=== PATIENT | female | born 1990 | race Caucasian/White ===

== ENCOUNTER 2018-05-14 20:46 | Emergency (ER) | payer MEDICARE ==
[~2018-05-14] VITALS: Ht 152.4 cm; Wt 96.4 kg
[~2018-05-14 20:46] MED LIST: /OMEP10CA; ALBU17IN INH; ALBU17IN2; BENA25CA2 PO; CARA1TAB6 PO; CELE10TA; CELE20TA; CLEO1GEL TOP; DEPA500T2 OR; ENAL10TA2 OR; LITH1TAB PO; LITH600C PO; No Historical Meds; PAXI30TA OR; PROT1TAB2; PROZ10CA7 PO; PROZ20CA11 PO; TRAZ-160 PO; TRAZ50TA; TRAZ50TA2 PO; TRIL600T; [UNRECOGNIZED DRUG - CODE] PO; no home meds
[2018-05-14] MEDS ORDERED: VITA1CAP25 (21:04)
[2018-05-14] MEDS ORDERED: LISI-672 PO (21:04)
[2018-05-14] MEDS ORDERED: MOTR200T44 PO (21:04)
[2018-05-14] MEDS ORDERED: OMEP-218 PO (21:04)
--- NOTE | 2018-05-14 22:09 | REP ---
Clinical: Cough and shortness of breath . Comparison: 01/09/2012 . Technique: PA and lateral. Findings: The mediastinum and cardiac silhouette are normal. The lung rodriguez are clear and without acute consolidation, effusion, or pneumothorax. The skeletal structures are intact and normal. Impression: 1. No acute cardiopulmonary process. Electronically Signed by Tristen Flores MD 05/14/2018 10:00 P
[2018-05-14] MEDS ORDERED: MUCI600T37 PO (22:26)
[2018-05-14] MEDS ORDERED: TESS100C PO (22:26)
[2018-05-14] MEDS ORDERED: BENZONATATE 100 MG CAP PO ONE (22:30)
[2018-05-14 22:32] VITALS: BP 116/57
== END 2018-05-14 22:33 | disposition home or self-care (01) ==
LOC: M ED 20:46
DX: J45.901 Unspecified asthma with (acute) exacerbation (principal); R51 Headache; Z88.0 Allergy status to penicillin; Z88.2 Allergy status to sulfonamides; Z88.8 Allergy status to other drugs, medicaments and biological substances; Z88.5 Allergy status to narcotic agent; Z79.899 Other long term (current) drug therapy

== ENCOUNTER → 2018-05-23 | Outpatient (CLI) | payer MEDICARE ==
[~2018-05-23] MED LIST changes: +GASTROGRAFIN SOLUTION 30ML (Q9963) As Ordered ONE; +ISOVUE-370 76% 100ML VIAL (Q9967) As Ordered ONE; +LISI-672 PO; +MOTR200T44 PO; +MUCI600T37 PO; +OMEP-218 PO; +TESS100C PO; +VITA1CAP25
--- NOTE | 2018-05-23 17:18 | REP ---
CT abdomen pelvis with IV and oral contrast: History: Abdomen pain and mass. CT contrast dose: 100 ml of intravenous Isovue [address] study is from August 29, 2008. CT findings: Preliminary digital card cleaner radiograph is unremarkable. A normal bowel gas pattern is seen. Lung bases are clear on axial CT images. The liver as normal in size homogeneous in texture. No focal hepatic lesion is seen. No adrenal lesion is observed. The spleen is normal and homogeneous. There is a small accessory splenule. No pancreatic abnormalities observed. No abnormalities noted in the gallbladder. The kidneys enhance symmetrically and are morphologically intact. Small and large bowel loops are normal in the abdomen and pelvis. A normal appendix is seen in the right lower abdomen. No uterine or ovarian abnormality is observed. No abdominal wall defect is seen. No mass lesion is observed. Bone window settings show no bony destructive lesion. Impression: Negative CT study of the abdomen and pelvis with IV and oral contrast. No mass lesion is seen. No evidence of abdominal wall defect. Normal appendix. Electronically Signed by Jared Arzate MD 05/24/2018 07:51 A
== END ==
LOC: M RAD 13:46
PROVIDERS: ATTEND Family Medicine
DX: R19.00 Intra-abdominal and pelvic swelling, mass and lump, unspecified site (principal)
CPT/HCPCS: 74177; Q9963; Q9967

== ENCOUNTER 2018-08-13 20:26 | Emergency (ER) | payer MEDICARE, MEDICAID ==
[~2018-08-13] VITALS: Ht 152.4 cm; Wt 95.5 kg
[~2018-08-13 20:26] MED LIST changes: -GASTROGRAFIN SOLUTION 30ML (Q9963) As Ordered ONE; -ISOVUE-370 76% 100ML VIAL (Q9967) As Ordered ONE; -TRAZ-160 PO; +TRAZ-252 PO
[2018-08-13] MEDS ORDERED: GI COCKTAIL 50ML BTL(HYOSCYAMINE/MAALOX/LIDOCAINE VISCOUS)(1:3:1) PO ONE (20:45)
[2018-08-13] MEDS ORDERED: ASPIRIN 81 MG CHEW TABLET PO ONE (20:45)
[2018-08-13 20:52] LABS: HEMATOCRIT 48.4 % (36.0-47.0); HEMOGLOBIN 16.4 g/dl (12.0-15.5); MEAN CORPUSCULAR HEMOGLOBIN 32.5 pg (27.0-33.0); MEAN CORPUSCULAR HGB CONC 33.9 g/dl (32.0-36.5); MEAN CORPUSCULAR VOLUME 95.8 fl (80.0-96.0); PLATELET COUNT, AUTOMATED 294 10^3/uL (150-450); RED BLOOD COUNT 5.05 10^6/uL (4.00-5.40); WHITE BLOOD COUNT 19.3 10^3/uL (4.0-10.0)
[2018-08-13 21:02] LABS: PROTHROMBIN TIME 12.9 SECONDS (11.8-14.0)
[2018-08-13 21:10] LABS: HCG, SERUM QUALITATIVE NEGATIVE (NEGATIVE)
[2018-08-13 21:20] LABS: ALBUMIN 3.8 GM/DL (3.2-5.2); ALT/SGPT 24 U/L (12-78); BILIRUBIN,DIRECT 0.2 MG/DL (0.0-0.2); BILIRUBIN,TOTAL 0.4 MG/DL (0.2-1.0); BLOOD UREA NITROGEN 13 MG/DL (7-18); CALCIUM LEVEL 10.1 MG/DL (8.5-10.1); CARBON DIOXIDE LEVEL 26 MEQ/L (21-32); CHLORIDE LEVEL 105 MEQ/L (98-107); CK-MB VALUE MASS < 1.0 NG/ML (<3.6); CPK CREATINE PHOSPHOKINASE 86 U/L (26-192); CREATININE FOR GFR 1.04 MG/DL (0.55-1.30); GLOMERULAR FILTRATION RATE > 60.0 (>60); GLUCOSE, FASTING 101 MG/DL (70-100); MB/CK RELATIVE INDEX 1.16 (< OR =4); POTASSIUM SERUM 3.9 MEQ/L (3.5-5.1); SODIUM LEVEL 139 MEQ/L (136-145); TOTAL PROTEIN 8.1 GM/DL (6.4-8.2); TROPONIN I < 0.02 NG/ML (< 0.10)
[2018-08-13 21:21] LABS: BASOPHILS 2 % (0-4); EOSINOPHILS 1 % (0-5); LYMPHOCYTES 28 % (16-52); MONOCYTES 2 % (0-8); NEUTROPHILS 67 % (35-75)
[2018-08-13 21:22] LABS: PLATELET ESTIMATE NORMAL (NORMAL)
[2018-08-13 21:52] LABS: LIPASE 126 U/L (73-393)
[2018-08-13] MEDS ORDERED: CIPR-249 PO (22:49)
[2018-08-13 23:00] VITALS: BP 151/75
[2018-08-13] MEDS ORDERED: CIPROFLOXACIN 500 MG TAB PO ONE (23:00)
--- NOTE | 2018-08-14 14:03 | REP ---
Clinical: Acute chest pain . Comparison: 05/14/2018 . Technique: PA and lateral. Findings: The mediastinum and cardiac silhouette are normal. The lung rodriguez are clear and without acute consolidation, effusion, or pneumothorax. The skeletal structures are intact and normal. Impression: 1. No acute cardiopulmonary process. Electronically Signed by Tristen Flores MD 08/14/2018 07:45 A
--- NOTE | 2018-08-14 15:36 | ECGEPIP ---
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
== END 2018-08-13 23:08 | disposition home or self-care (01) ==
LOC: M ED 20:26
DX: K29.70 Gastritis, unspecified, without bleeding (principal); N39.0 Urinary tract infection, site not specified; I10 Essential (primary) hypertension; J45.909 Unspecified asthma, uncomplicated; G43.909 Migraine, unspecified, not intractable, without status migrainosus; Z79.899 Other long term (current) drug therapy

== ENCOUNTER 2018-08-15 21:10 | Emergency (ER) | payer MEDICARE, MEDICAID ==
[~2018-08-15] VITALS: Ht 152.4 cm; Wt 95.5 kg
[2018-08-15 21:10] VITALS: BP 136/83
[~2018-08-15 21:10] MED LIST changes: +CIPR-249 PO
== END 2018-08-15 22:52 | disposition left against medical advice (07) ==
LOC: M ED 21:10
DX: R11.2 Nausea with vomiting, unspecified (principal); R19.7 Diarrhea, unspecified; Z53.21 Procedure and treatment not carried out due to patient leaving prior to being seen by health care provider

== ENCOUNTER → 2018-09-06 | Outpatient (CLI) | payer MEDICARE, MEDICAID ==
--- NOTE | 2018-09-06 13:27 | REP ---
Clinical: Dorsalgia. Thoracic pain. Technique: AP, lateral. Findings: Alignment and kyphosis is maintained. Vertebral bodies intact. No acute fracture / compression injury or subluxation. No degenerative changes. Paravertebral soft tissues are normal. Impression: Normal thoracic spine series. Electronically Signed by Tristen Flores MD 09/06/2018 01:19 P
--- NOTE | 2018-09-06 13:28 | REP ---
Clinical: Dorsalgia . Technique: AP, lateral, bilateral oblique, and coned-down views. Findings: Alignment and lordosis is maintained. The vertebral bodies including transverse process and spinous processes are intact and normal. There is no evidence for acute fracture / compression injury or subluxation. No evidence for spondylolysis or spondylolisthesis. No significant degenerative change is noted. Impression: Normal lumbosacral spine radiograph series. Electronically Signed by Tristen Flores MD 09/06/2018 01:19 P
--- NOTE | 2018-09-06 13:29 | REP ---
Clinical: Dorsalgia . Technique: AP, lateral, flexion/extension, bilateral oblique, swimmer's, and open-mouth views. Findings: Alignment and lordosis is maintained. There is no evidence for acute fracture / compression injury or subluxation. No significant degenerative changes are appreciated. Oblique views demonstrate patent neural foramen. Open mouth view demonstrates normal C1-C2 articulation and odontoid process. Impression: Normal cervical spine series. Electronically Signed by Tristen Flores MD 09/06/2018 01:20 P
== END ==
LOC: M RAD 12:45
PROVIDERS: ATTEND Family Medicine
DX: M54.9 Dorsalgia, unspecified (principal)

== ENCOUNTER → 2018-10-04 | Outpatient (CLI) | payer MEDICARE, MEDICAID ==
[~2018-10-04] MED LIST changes: +AZIT-12; +AZIT-12 PO; +CVS2500C PO; +CYAN100050 PO; +CYCL5TAB PO; +DEPA250T32 PO; +EXCETAB33 PO; +FLUO20CA19 PO; +HYDR50TA70 PO; +IBUP1TAB7 PO; +KETO10TAB PO; +MM S100C PO; +NYST1POW9 TOP; +VENTAER INH; +VITA1CAP25 PO; +VITACHTA PO
--- NOTE | 2018-10-05 13:56 | REP ---
CT CHEST WITHOUT CONTRAST: HISTORY: Abnormal weight loss. Comparison chest CT study is from February 13, 2013. CT FINDINGS: Preliminary digital front desk admin radiograph is unremarkable. The lung rodriguez are clear. No evidence of infiltrate, mass, or significant pulmonary nodule. No pleural or pericardial effusion is seen. There is no evidence of hilar or mediastinal mass or adenopathy. Thyroid lobes are normal and symmetric although incompletely included in the imaging field of view. No adrenal lesion is seen. The visualized upper abdominal structures are unremarkable. No bony destructive lesion is seen. IMPRESSION: No acute cardiopulmonary disease. Electronically Signed by Jared Arzate MD 10/05/2018 04:41 P
--- NOTE | 2018-10-05 13:58 | REP ---
CT ABDOMEN AND PELVIS WITHOUT IV OR ORAL CONTRAST: HISTORY: Abnormal weight loss. Comparison CT study is from May 23, 2018. CT FINDINGS: Liver and spleen are normal in size homogeneous in texture. The gallbladder and the pancreas are unremarkable. No adrenal lesion is seen. The kidneys remain morphologically intact. No retroperitoneal mass seen. No mesenteric mass or adenopathy is seen. Small and large bowel loops are normal in caliber. No urinary bladder abnormality is seen. Uterus and ovarian soft tissues are unremarkable. No bony destructive lesion is seen. IMPRESSION: Unremarkable CT study abdomen and pelvis without contrast. Electronically Signed by Jared Arzate MD 10/05/2018 04:42 P
== END ==
LOC: M RAD 14:00
PROVIDERS: ATTEND Family Medicine
DX: R63.4 Abnormal weight loss (principal)

== ENCOUNTER → 2018-10-21 | Outpatient (CLI) | payer MEDICARE, MEDICAID ==
[~2018-10-21] MED LIST changes: -AZIT-12; -AZIT-12 PO; -CVS2500C PO; -CYAN100050 PO; -CYCL5TAB PO; -DEPA250T32 PO; -EXCETAB33 PO; -FLUO20CA19 PO; -HYDR50TA70 PO; -IBUP1TAB7 PO; -KETO10TAB PO; -MM S100C PO; -NYST1POW9 TOP; -VENTAER INH; -VITA1CAP25 PO; -VITACHTA PO
[2018-10-21 12:32] LABS: APPEARANCE, URINE CLEAR (CLEAR); BACTERIA, URINE AUTO NEGATIVE (NEGATIVE); BILIRUBIN, URINE AUTO NEGATIVE (NEGATIVE); BLOOD, URINE BLOOD NEGATIVE (NEGATIVE); COLOR, URINE YELLOW (YELLOW); GLUCOSE, URINE (UA) AUTO NEGATIVE (NEGATIVE); KETONE, URINE AUTO NEGATIVE (NEGATIVE); LEUKOCYTE ESTERASE, URINE AUTO NEGATIVE (NEGATIVE); MUCUS, URINE SMALL (NEGATIVE); NITRITE, URINE AUTO NEGATIVE (NEGATIVE); PROTEIN, URINE AUTO NEGATIVE (NEGATIVE); RBC, URINE AUTO 1 /HPF (0-3); SPECIFIC GRAVITY URINE AUTO 1.014 (1.002-1.035); SQUAMOUS EPITHELIAL CELL UR AU 4 /HPF (0-6); UROBILINOGEN, URINE AUTO 0.2 mg/dL (0.0-2.0); WBC, URINE AUTO 1 /HPF (0-3)
[2018-10-21 12:38] LABS: BASO # 0.1 10^3/uL (0.0-0.2); BASO % 0.6 % (0.0-1.0); EOS # 0.4 10^3/uL (0.0-0.5); EOS % 4.9 % (0.0-3.0); HEMATOCRIT 43.7 % (36.0-47.0); HEMOGLOBIN 14.2 g/dl (12.0-15.5); LYMPH # 2.5 10^3/uL (1.5-5.0); LYMPH % 31.5 % (24.0-44.0); MEAN CORPUSCULAR HEMOGLOBIN 31.3 pg (27.0-33.0); MEAN CORPUSCULAR HGB CONC 32.5 g/dl (32.0-36.5); MEAN CORPUSCULAR VOLUME 96.3 fl (80.0-96.0); MONO # 0.6 10^3/uL (0.0-0.8); MONO % 7.2 % (0.0-5.0); NEUTROPHILS # 4.3 10^3/uL (1.5-8.5); NEUTROPHILS % 55.7 % (36.0-66.0); PLATELET COUNT, AUTOMATED 271 10^3/uL (150-450); RED BLOOD COUNT 4.54 10^6/uL (4.00-5.40); WHITE BLOOD COUNT 7.8 10^3/uL (4.0-10.0)
[2018-10-21 13:13] LABS: HEMOGLOBIN A1c 5.3 %
[2018-10-21 13:24] LABS: ALBUMIN 3.6 GM/DL (3.2-5.2); ALT/SGPT 38 U/L (12-78); BILIRUBIN,TOTAL 0.5 MG/DL (0.2-1.0); BLOOD UREA NITROGEN 14 MG/DL (7-18); CALCIUM LEVEL 10.3 MG/DL (8.5-10.1); CARBON DIOXIDE LEVEL 31 MEQ/L (21-32); CHLORIDE LEVEL 104 MEQ/L (98-107); CHOLESTEROL LEVEL 214 MG/DL (<200); CHOLESTEROL RISK RATIO 5.095 (<5); CREATININE FOR GFR 0.68 MG/DL (0.55-1.30); FREE T4 0.89 NG/DL (0.76-1.46); GLOMERULAR FILTRATION RATE > 60.0 (>60); GLUCOSE, FASTING 95 MG/DL (70-100); HDL CHOLESTEROL 42 MG/DL (>40); LDL CHOLESTEROL 144 MG/DL (<100); NON-HDL-C 172 MG/DL; POTASSIUM SERUM 4.6 MEQ/L (3.5-5.1); SODIUM LEVEL 140 MEQ/L (136-145); THYROID STIMULATING HORMONE 0.933 uIU/ML (0.358-3.740); TOTAL 25(OH) VITAMIN D 44.4 NG/ML (30.0-100.0); TRIGLYCERIDES LEVEL 140 MG/DL (<150); VITAMIN B12 LEVEL 193 PG/ML (247-911)
[2018-10-22 14:25] LABS: ANTINUCLEAR ANTIBODIES DIRECT Negative (Negative)
== END ==
LOC: M WUC 10:03
PROVIDERS: ATTEND Family Medicine
DX: F31.60 Bipolar disorder, current episode mixed, unspecified (principal); G47.00 Insomnia, unspecified; E55.9 Vitamin D deficiency, unspecified; I10 Essential (primary) hypertension; E66.9 Obesity, unspecified

== ENCOUNTER → 2018-10-24 | Outpatient (CLI) | payer MEDICARE, MEDICAID ==
[~2018-10-24] MED LIST changes: +CVS2500C PO; +MM S100C PO; +VENTAER INH
[2018-10-24 15:50] LABS: HCG, SERUM QUALITATIVE NEGATIVE (NEGATIVE)
[2018-10-24 15:52] LABS: HCG, SERUM QUANTITATIVE < 1.0 MIU/ML
== END ==
LOC: M LAB 14:30
PROVIDERS: ATTEND Physician Assistant Medical
DX: N91.2 Amenorrhea, unspecified (principal)

== ENCOUNTER 2018-11-03 18:00 | Inpatient (IN) | payer MEDICARE, MEDICAID ==
[~2018-11-03] VITALS: Ht 152.4 cm; Wt 92.2 kg
[2018-11-03] MEDS ORDERED: AZIT-12 (18:06)
[2018-11-03 18:33] LABS: HEMATOCRIT 43.9 % (36.0-47.0); HEMOGLOBIN 14.8 g/dl (12.0-15.5); MEAN CORPUSCULAR HEMOGLOBIN 32.8 pg (27.0-33.0); MEAN CORPUSCULAR HGB CONC 33.7 g/dl (32.0-36.5); MEAN CORPUSCULAR VOLUME 97.3 fl (80.0-96.0); PLATELET COUNT, AUTOMATED 239 10^3/uL (150-450); RED BLOOD COUNT 4.51 10^6/uL (4.00-5.40); WHITE BLOOD COUNT 7.7 10^3/uL (4.0-10.0)
[2018-11-03 19:14] LABS: ACETAMINOPHEN LEVEL < 2.0 UG/ML (10.0-30.0); ALBUMIN 3.7 GM/DL (3.2-5.2); ALT/SGPT 45 U/L (12-78); BILIRUBIN,DIRECT 0.1 MG/DL (0.0-0.2); BILIRUBIN,TOTAL 0.4 MG/DL (0.2-1.0); BLOOD UREA NITROGEN 11 MG/DL (7-18); CALCIUM LEVEL 9.7 MG/DL (8.5-10.1); CARBON DIOXIDE LEVEL 30 MEQ/L (21-32); CHLORIDE LEVEL 106 MEQ/L (98-107); CREATININE FOR GFR 0.75 MG/DL (0.55-1.30); ETHYL ALCOHOL (ETHANOL) < 0.003 % (0.000-0.010); GLOMERULAR FILTRATION RATE > 60.0 (>60); GLUCOSE, FASTING 113 MG/DL (70-100); POTASSIUM SERUM 3.8 MEQ/L (3.5-5.1); SALICYLATE LEVEL < 1.7 MG/DL (5.0-30.0); SODIUM LEVEL 140 MEQ/L (136-145); THYROID STIMULATING HORMONE 0.691 uIU/ML (0.358-3.740); TOTAL PROTEIN 7.4 GM/DL (6.4-8.2)
[2018-11-03] MEDS ORDERED: ONDANSETRON 4 MG ORAL DISINTEGRATING TAB (Q0162 PER 1MG) PO ONE (19:45)
[2018-11-03 19:54] LABS: HCG, SERUM QUALITATIVE NEGATIVE (NEGATIVE)
[2018-11-03 20:24] LABS: AMPHETAMINES LEVEL URINE NEGATIVE (NEGATIVE); BARBITURATES URINE NEGATIVE (NEGATIVE); BENZODIAZEPINES URINE NEGATIVE (NEGATIVE); CANNABINOIDS URINE NEGATIVE (NEGATIVE); COCAINE METABOLITE URINE NEGATIVE (NEGATIVE); METHADONE URINE NEGATIVE (NEGATIVE); OPIATES URINE NEGATIVE (NEGATIVE); PHENCYCLIDINE URINE NEGATIVE (NEGATIVE)
[2018-11-03] MEDS ORDERED: MAALOX 30 ML SUSP *UDC PO PRN (21:15)
[2018-11-03] MEDS ORDERED: MOM 30ML SUSPENSION UDC PO PRN (21:15)
[2018-11-03] MEDS ORDERED: traZODone 50 MG TAB PO PRN (21:15)
[2018-11-03] MEDS ORDERED: IBUP1TAB7 PO (21:19)
[2018-11-03] MEDS ORDERED: VITA1CAP25 PO (21:19)
[2018-11-03] MEDS ORDERED: EXCETAB33 PO (21:19)
[2018-11-03] MEDS ORDERED: VITACHTA PO (21:19)
[2018-11-03] MEDS ORDERED: CYAN100050 PO (21:19)
[2018-11-03] MEDS ORDERED: AZIT-12 PO (21:19)
[2018-11-03 22:14] VITALS: BP 135/93
[2018-11-04] MEDS: BENZONATATE 100 MG CAP PO PRN ×3 (02:56→22:24)
[2018-11-04] MEDS: IBUPROFEN 600 MG TAB PO PRN ×3 (02:57→20:28)
[2018-11-04 03:11] VITALS: BP 103/57
[2018-11-04 06:01] VITALS: BP 109/61
[2018-11-04] MEDS: EXCEDRIN MIGRAINE TABLET PO PRN ×2 (08:23→19:42)
[2018-11-04] MEDS: AZITHROMYCIN 250 MG TAB PO SCH (08:24)
[2018-11-04] MEDS: NICOTINE 7 MG/24 HR TRANSDERMAL TD SCH (08:24)
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
[2018-11-04] MEDS ORDERED: ACETAMINOPHEN TAB 650MG DOSE (2X325MG) PO PRN (13:30)
[2018-11-04] MEDS ORDERED: ALBUTEROL SULFATE 2.5 MG/0.5 ML INH NEB SOLN NEB PRN (13:30)
--- NOTE | 2018-11-04 15:13 | HPEPDOC ---
General Date of Admission Nov 03, 2018 at 21:10 Date of Service: Nov 04, 2018 Attending Physician: ANNA JUNIOR MD Chief Complaint The patient is a 28-year-old female admitted with a reason for visit of MHE. Source: Patient Exam Limitations: No limitations Timing/Duration: Week(s) Severity: Moderate Associated Symptoms: Other History of Present Illness 28 yo woman with a history of major depression with previous [facility] admissions, GERD, DACIA, asthma, mitral valve prolapse and hypertension, bipolar disorder and anxiety who presented to the hospital after asking her roommate to take her to the ED for persistent thoughts of self harm without a specific plan. She reports that she has had depression for a long time and knows when she begins to decomp ensate and decided to present to the ED for intrusive thoughts of suicidal ideation in the setting of recent stress with her fiance who has autism spectrum disorder. She otherwise denied any homicidal ideation, chest pain, shortness of breath, recent fever, chills, diarrhea or other physical illness. She did report that she has been having episodic chest tightness such as this morning and will take her albuterol when it happens but she is concerned that it may also be a manifestation of anxiety. Home Medications Scheduled Azithromycin (Azithromycin) 250 Mg Tablet, 250 MG PO ASDIRECTED, (Reported) 500MG ON DAY 1, THEN 250MG DAILY THE FINAL 4 DAYS; LAST DOSE WAS DAY 2. Cholecalciferol (Vitamin D3) (Vitamin D3) 50,000 Unit Capsule, 50,000 UNIT PO Q2WK, (Reported) EVERY OTHER WEDNESDAY Cyanocobalamin (Vitamin B-12) (Vitamin B-12) 1,000 Mcg Tablet, 1,000 MCG PO DAILY, (Reported) Docusate Sodium (Stool Softener) 100 Mg Capsule, 100 MG PO Q2D, (Reported) Lisinopril (Lisinopril) 30 Mg Tab, 30 MG PO DAILY, (Reported) Multivitamins (Child Chew Vitamin) 1 Each Tab.chew, 1 TAB PO DAILY, (Reported) Omeprazole (Omeprazole) 20 Mg Cap, 20 MG PO DAILY, (Reported) Scheduled PRN Albuterol Sulfate (Ventolin Hfa) 18 Gm Hfa.aer.ad, 2 PUFF INH Q4H PRN for SHORTNESS OF BREATH, (Reported) Aspirin/Acetaminophen/Caffeine (Excedrin Migraine Caplet) 1 Each Tablet, 2 TAB PO BID PRN for MIGRAINE, (Reported) Ibuprofen (Ibuprofen) 800 Mg Tablet, 800 MG PO TID PRN for PAIN, (Reported) Allergies Coded Allergies: metoprolol (Verified Allergy, Severe, hives, 11/01/18) quetiapine (Verified Allergy, Severe, rash, 11/01/18) sulfamethoxazole (Verified Allergy, Severe, rash, 11/01/18) trimethoprim (Verified Allergy, Severe, rash, 11/01/18) Penicillins (Verified Allergy, Intermediate, hives, 11/01/18) amoxicillin (Verified Allergy, Intermediate, hives, 11/01/18) codeine (Verified Allergy, Intermediate, rash, 11/01/18) Past Medical History Medical History Major depressive disorder Asthma Mitral valve prolapse Hypertension Bipolar ADHD Family History Significant Family History: No pertinent family hx Grandmother with a history of psychosis Alcohol use disorder in a parent Social History * Smoker: current smoker (1/2 pack per day) Recent Travel/Sick Contacts: Denies: Recent travel, Recent sick contacts Psychosocial History: Anxiety, Att. deficit disorder, Bipolar, Depression, Suicidal thoughts A-FIB/CHADSVASC A-FIB History Current/History of A-Fib/PAF?: No Current PO Anticoag Therapy: No Age/Risk Factor Scoring CHADSVASC: CHADSVASC Response (Comments) Value Age Risk Factor Age < 65 years old 0 Gender Risk Factor Male 0 Hx of CHF No 0 Hx of HTN No 0 Hx of Stroke/TIA/or VTE No 0 Hx of Diabetes No 0 Hx of Vascular Disease No 0 Total 0 Treatment Treatment ordered: NONE Reason Anticoagulant not given: Not indicated/[id number] Review of Systems Constitutional: Denies: Chills, Fever, Night Sweats Eyes: Denies: Pain, Vision change ENT: Denies: Head Aches, Ear Pain, Dysphagia Skin: Denies: Rash, Lesions, Breakdown Pulmonary: Reports: Other Symptoms (episodic chest tightness without wheeze); Denies: Dyspnea, Cough Cardiovascular: Denies: Chest Pain, Palpitations, Orthopnea, Paroxysmal Noc. Dyspnea, Lt Headedness Gastrointestinal: Denies: Nausea, Vomiting, Abdominal Pain, Diarrhea Genitourinary: Denies: Dysuria, Frequency, Incontinence, Retention Hematologic: Denies: Bruising, Bleeding Excessively Endocrine: Denies: Polydipsia, Polyphagia, Polyuria, Heat Intolerance, Cold Intolerance, Other Endocrine Sx Musculoskeletal: Denies: Neck Pain, Back Pain, Joint Pain, Muscle Pain, Spasms Neurological: Denies: Weakness, Numbness, Change in speech, Confusion Psych: Reports: Mood Normal; Denies: Depression, Memory Issues Physical Examination General Exam: Positive: Alert, No Acute Distress, Other (morbidly obese) Eye Exam: Positive: PERRLA, Conjunctiva & lids normal, EOMI; Negative: Sclera icteric ENT Exam: Positive: Atraumatic, Mucous membr. moist/pink, Pharynx Normal Neck Exam: Positive: Supple; Negative: JVD, thyromegaly Chest Exam: Positive: Clear to auscultation, Normal air movement; Negative: Rales, Rhonchi, Wheezing, Diminished Heart Exam: Positive: Rate Normal, Regular Rhythm, Normal S1, Normal S2; Negative: Murmurs, Rubs Abdomen Exam: Positive: Normal bowel sounds, Soft; Negative: Tenderness, Hepatospenomegaly Extremity Exam: Positive: Normal pulses; Negative: Clubbing, Cyanosis, Edema Skin Exam: Positive: Nl turgor and temperature; Negative: Breakdown, Lesion Neuro Exam: Positive: Normal Gait, Normal Speech, Cranial Nerves 3-12 NL, Reflexes 2+ Psych Exam: Positive: Mental status NL, Mood NL, Oriented x 3 Vital Signs Vital Signs Date Time Temp Pulse Resp B/P (MAP) Pulse Ox O2 Delivery O2 Flow Rate FiO2 11/04/18 09:00 Room Air 11/04/18 06:01 97.9 73 16 109/61 (77) 11/04/18 03:11 98 Laboratory Data Labs 24H Laboratory Tests 2 11/03/18 18:17: Nucleated Red Blood Cells % (auto) 0.0, Anion Gap 4L, Glomerular Filtration Rate > 60.0, Calcium Level 9.7, Aspartate Amino Transf (AST/SGOT) 23, Alanine Aminotransferase (ALT/SGPT) 45, Alkaline Phosphatase 58, Total Bilirubin 0.4, Direct Bilirubin 0.1, Total Protein 7.4, Albumin 3.7, Albumin/Globulin Ratio 1.00, Thyroid Stimulating Hormone (TSH) 0.691, Human Chorionic Gonadotropin, Qual NEGATIVE, Salicylates Level < 1.7L, Acetaminophen Level < 2.0L, Ethyl Alcohol Level < 0.003 11/03/18 19:46: Urine Amphetamines Screen NEGATIVE, Urine Benzodiazepines Screen NEGATIVE, Urine Opiates Screen NEGATIVE, Urine Methadone Screen NEGATIVE, Urine Barbiturates Screen NEGATIVE, Urine Phencyclidine Screen NEGATIVE, Urine Cocaine Metabolite Screen NEGATIVE, Urine Cannabinoids Screen NEGATIVE CBC/BMP Laboratory Tests 11/03/18 18:17 Red Blood Count 4.51, Mean Corpuscular Volume 97.3 H, Mean Corpuscular Hemoglobin 32.8, Mean Corpuscular Hemoglobin Concent 33.7, Red Cell Distribution Width 13.8 Assessment/Plan 28 yo woman with major depressive disorder, bipolar, anxiety, asthma, GERD, DACIA, morbid obesity who presented to the ED for increasingly persistent thought of suicidal ideation with no plan for psychiatric evaluation. She reports having previously been on antidepressants but had been off for a while now and is look to re-establish mental health care. She otherwise feels physically well, with the only issue being episodic chest tightness without any noted wheezing or air movement tightness per nursing exam during the episode. She is also concerned that this may be anxiety but with the history of asthma and recent bronchitis for which she is completing azithromycin I will recommend an albuterol inhaler, and per patient, she usually responds very well to a neb treatment at home, so I ordered that as well as a back up PRN if the rescue inhaler fails to bring relief. Plan: -Recent bronchitis: continue with Azithromycin until completed course per outpatient plan Asthma: PRN albuterol inhaler, and back up albuterol nebs PRN if persistent Hypertension: currently normotensive, but please restart her lisinopril if BP becomes elevated about systolic 140 -Rest of plan per psychiatry. Will continue to follow peripherally, thank you for involving me in the care of your patient. Plan / VTE VTE Prophylaxis Ordered?: No VTE Exclusion Mechanical Proph: Low Risk for VTE VTE Exclusion Pharmacological: At Low Risk for VTE ANNA JUNIOR MD Nov 04, 2018 14:45
[2018-11-04] MEDS: hydrOXYzine 50 MG TAB PO PRN ×2 (16:43→23:04)
[2018-11-04 18:16] VITALS: BP 112/57
[2018-11-04] MEDS: ALBUTEROL 90 MCG/ACT 8GM HFA INHALER INH PRN (19:43)
[2018-11-04] MEDS ORDERED: hydrOXYzine 50 MG TAB PO ONE (20:15)
[2018-11-04] MEDS: DIVALPROEX 250 MG TAB PO SCH (22:24)
[2018-11-04] MEDS ORDERED: zolPIDEM TARTRATE 5 MG TAB PO PRN (23:05)
[2018-11-05 06:33] VITALS: BP 114/59
[2018-11-05] MEDS: hydrOXYzine 50 MG TAB PO PRN ×2 (07:19→15:40)
[2018-11-05] MEDS: AZITHROMYCIN 250 MG TAB PO SCH (08:08)
[2018-11-05] MEDS: PARoxetine 20 MG TAB PO SCH (08:08)
[2018-11-05] MEDS: NICOTINE 7 MG/24 HR TRANSDERMAL TD SCH (08:08)
[2018-11-05] MEDS: OMEPRAZOLE 20 MG CAP PO SCH (10:12)
[2018-11-05] MEDS: BENZONATATE 100 MG CAP PO PRN (10:12)
[2018-11-05] MEDS: DOCUSATE SODIUM 100 MG CAP PO SCH (10:12)
[2018-11-05] MEDS: LISINOPRIL 10 MG TAB PO SCH (10:13)
--- NOTE | 2018-11-05 13:39 | MHIPNPDOC ---
[facility] Progress Note Progress Note Inpatient Progress Note Lena Galo MRN: N/A Date of : N/A Date of Service: 11/05/2018 History of Present Illness The patient, a 28-year-old woman, presented to [facility] with fleeting suicidal thoughts without a plan in the context of difficulties with her fiance. Interval History The patient is met with today. She reports that she is feeling somewhat better on the restart home medications. She reports that her mood is making some improvements with less fatigue and loss of Interest. She has had no major behavioral problems overnight. Review Of Systems General: Denies fever or appetite changes Cardiovascular: Denies Chest pain or palpitations GI: Denies Nausea, vomiting, or bowel changes Respiratory: Denies shortness of breath or cough Neuro: Denies dizziness, tremors Derm: Denies any rashes or pruritus : Denies any dysuria or urinary dysfunction MSK: Denies any muscle tightness or stiffness HEENT: Denies any vision changes or headaches Heme/Lymph: Denies any bruising or bleeding Endo: Denies any cold/heat intolerance or water intake changes Psychotherapy None on this visit. Vital Signs Reviewed. Mental Status Examination General: Well dressed with good hygiene Speech: Spontaneous and fluid Thought processes: Linear and logical MSK: Smooth and coordinated gait, no signs of tremors or involuntary orofacial movements Thought content: Mildly hopeless Abstract reasoning, and computation: Intact Description of associations: Intact Description of abnormal or psychotic thoughts: Denies any suicidal or homicidal ideation. Denies any auditory or visual hallucinations. Does not appear to be responding to internal stimuli. Does not appear to be endorsing any bizarre or paranoid ideation. Judgment: fair Insight: fair Orientation: Alert and orientated 3 Cognition: Grossly normal Recent and remote memory: Intact Attention span and concentration: Intact Fund of knowledge: Adequate Mood: "okay" Affect: mildly dysthymic with a constricted range Diagnoses Unspecified depressive disorder. Rule out bipolar 2 versus borderline personality disorder. Assessment and Plan Continue medications as below. Disposition Will need a longer admission in order to titrate medications to full effect. Time Spent 20 minutes Wednesday Vital Signs Vital Signs Date Time Temp Pulse Resp B/P (MAP) Pulse Ox O2 Delivery O2 Flow Rate FiO2 11/05/18 10:13 140/90 11/05/18 08:05 Room Air 11/05/18 06:33 97.4 60 18 11/04/18 03:11 98 Current Medications Current Medications Medications (Trade) Dose Ordered Sig/Ivan Route PRN Reason Start Time Stop Time Status Last Admin Dose Admin Acetaminophen (Tylenol Tab) 650 mg Q6HP PRN PO PAIN / FEVER 11/04/18 13:30 Acetaminophen/ Aspirin/Caffeine (Excedrin Migraine) 1 ea Q6HP PRN PO HEADACHE 11/03/18 21:15 11/04/18 19:42 Al Hydrox/Mg Hydrox/Simethicone (Mylanta) 30 ml Q4HP PRN PO HEARTBURN/INDIGESTION 11/03/18 21:15 Albuterol Sulfate (Proventil Neb) 2.5 mg Q6HP PRN NEB SOB/WHEEZING 11/04/18 13:30 Albuterol Sulfate (Proventil, Ventolin Hfa) 2 puff Q6HP PRN INH SHORTNESS OF BREATH 11/04/18 13:30 11/04/18 19:43 Azithromycin (Zithromax Tab) 250 mg DAILY PO 11/04/18 09:00 11/07/18 09:00 11/05/18 08:08 Benzonatate (Tessalon Perles) 200 mg Q6HP PRN PO COUGH 11/04/18 02:45 11/05/18 10:12 Divalproex Sodium (Depakote) 250 mg QHS PO 11/04/18 21:00 11/04/18 22:24 Docusate Sodium (Colace) 100 mg Q2D PO 11/05/18 09:00 Home Med (Med Rec Complete!) ASDIRECTED XX 11/03/18 21:30 11/03/18 21:21 DC Hydroxyzine HCl (Atarax) 50 mg Q6HP PRN PO anxiety/agitation 11/04/18 16:00 11/05/18 07:19 Ibuprofen (Advil) 600 mg Q12HP PRN PO PAIN 11/04/18 02:45 11/04/18 20:14 DC 11/04/18 14:06 Ibuprofen (Advil) 600 mg Q6HP PRN PO MODERATE PAIN (PS 5-7) 11/04/18 20:15 11/04/18 20:28 Lisinopril (Prinivil) 30 mg DAILY PO 11/05/18 09:00 11/05/18 10:13 Magnesium Hydroxide (Milk Of Magnesia) 30 ml DAILYPRN PRN PO CONSTIPATION 11/03/18 21:15 Nicotine (Nicoderm Cq 7 Mg) 1 patch DAILY TD 11/04/18 09:00 11/05/18 08:08 Omeprazole (PriLOSEC) 20 mg DAILY PO 11/05/18 09:00 11/05/18 10:12 Paroxetine HCl (PAXil) 20 mg QAM PO 11/05/18 09:00 11/05/18 08:08 Trazodone HCl (Desyrel) 50 mg QHSP PRN PO INSOMNIA 11/03/18 21:15 11/03/18 23:06 Zolpidem Tartrate (Ambien) 5 mg QHSP PRN PO insomnia 11/04/18 23:05 11/04/18 23:23 Allergies Coded Allergies: metoprolol (Verified Allergy, Severe, hives, 11/01/18) quetiapine (Verified Allergy, Severe, rash, 11/01/18) sulfamethoxazole (Verified Allergy, Severe, rash, 11/01/18) trimethoprim (Verified Allergy, Severe, rash, 11/01/18) Penicillins (Verified Allergy, Intermediate, hives, 11/01/18) amoxicillin (Verified Allergy, Intermediate, hives, 11/01/18) codeine (Verified Allergy, Intermediate, rash, 11/01/18) IRASEMA YANEZ DO Nov 05, 2018 13:39
[2018-11-05 15:51] VITALS: BP 146/60
[2018-11-05] MEDS: IBUPROFEN 600 MG TAB PO PRN (17:57)
[2018-11-05] MEDS: EXCEDRIN MIGRAINE TABLET PO PRN (19:44)
[2018-11-05] MEDS: DIVALPROEX 250 MG TAB PO SCH (20:52)
[2018-11-06] MEDS: hydrOXYzine 50 MG TAB PO PRN ×3 (04:40→20:34)
[2018-11-06 06:36] VITALS: BP 113/70
[2018-11-06] MEDS: LISINOPRIL 10 MG TAB PO SCH (08:17)
[2018-11-06] MEDS: AZITHROMYCIN 250 MG TAB PO SCH (08:17)
[2018-11-06] MEDS: OMEPRAZOLE 20 MG CAP PO SCH (08:17)
[2018-11-06] MEDS: PARoxetine 20 MG TAB PO SCH (08:17)
[2018-11-06] MEDS: NICOTINE 7 MG/24 HR TRANSDERMAL TD SCH (08:18)
[2018-11-06] MEDS: BENZONATATE 100 MG CAP PO PRN ×2 (09:20→19:53)
--- NOTE | 2018-11-06 12:59 | MHIPNPDOC ---
[facility] Progress Note Progress Note Inpatient Progress Note Lena Galo MRN: N/A Date of : N/A Date of Service: 11/06/2018 History of Present Illness The patient, a 28-year-old woman, presented to [facility] with fleeting suicidal thoughts without a plan in the context of difficulties with her fiance. Interval History Patient is met with. She reports improving mood, improved energy, concentration, and less difficulty socializing. She feels she is getting closer to being ready to go. She states that otherwise she has been doing well. She has had no major behavioral problems overnight. Review Of Systems General: Denies fever or appetite changes Cardiovascular: Denies Chest pain or palpitations GI: Denies Nausea, vomiting, or bowel changes Respiratory: Denies shortness of breath or cough Neuro: Denies dizziness, tremors Derm: Denies any rashes or pruritus : Denies any dysuria or urinary dysfunction MSK: Denies any muscle tightness or stiffness HEENT: Denies any vision changes or headaches Heme/Lymph: Denies any bruising or bleeding Endo: Denies any cold/heat intolerance or water intake changes Psychotherapy None on this visit. Vital Signs Reviewed. Mental Status Examination General: Well dressed with good hygiene Speech: Spontaneous and fluid Thought processes: Linear and logical MSK: Smooth and coordinated gait, no signs of tremors or involuntary orofacial movements Thought content: Mildly hopeless Abstract reasoning, and computation: Intact Description of associations: Intact Description of abnormal or psychotic thoughts: Denies any suicidal or homicidal ideation. Denies any auditory or visual hallucinations. Does not appear to be responding to internal stimuli. Does not appear to be endorsing any bizarre or paranoid ideation. Judgment: fair Insight: fair Orientation: Alert and orientated 3 Cognition: Grossly normal Recent and remote memory: Intact Attention span and concentration: Intact Fund of knowledge: Adequate Mood: "okay" Affect: mildly dysthymic with a constricted range Diagnoses Unspecified depressive disorder. Rule out bipolar 2 versus borderline personality disorder. Assessment and Plan Continue medications as below. Disposition Will need a longer admission in order to titrate medications to full effect. Time Spent 15 minutes [id number]. Wednesday Vital Signs Vital Signs Date Time Temp Pulse Resp B/P (MAP) Pulse Ox O2 Delivery O2 Flow Rate FiO2 11/06/18 10:32 Room Air 11/06/18 08:17 113/69 11/06/18 06:36 98.0 65 16 11/04/18 03:11 98 Current Medications Current Medications Medications (Trade) Dose Ordered Sig/Ivan Route PRN Reason Start Time Stop Time Status Last Admin Dose Admin Acetaminophen (Tylenol Tab) 650 mg Q6HP PRN PO PAIN / FEVER 11/04/18 13:30 11/05/18 20:54 Acetaminophen/ Aspirin/Caffeine (Excedrin Migraine) 1 ea Q6HP PRN PO HEADACHE 11/03/18 21:15 11/05/18 19:44 Al Hydrox/Mg Hydrox/Simethicone (Mylanta) 30 ml Q4HP PRN PO HEARTBURN/INDIGESTION 11/03/18 21:15 Albuterol Sulfate (Proventil Neb) 2.5 mg Q6HP PRN NEB SOB/WHEEZING 11/04/18 13:30 Albuterol Sulfate (Proventil, Ventolin Hfa) 2 puff Q6HP PRN INH SHORTNESS OF BREATH 11/04/18 13:30 11/04/18 19:43 Azithromycin (Zithromax Tab) 250 mg DAILY PO 11/04/18 09:00 11/07/18 09:00 11/06/18 08:17 Benzonatate (Tessalon Perles) 200 mg Q6HP PRN PO COUGH 11/04/18 02:45 11/06/18 09:20 Divalproex Sodium (Depakote) 250 mg QHS PO 11/04/18 21:00 11/05/18 20:52 Docusate Sodium (Colace) 100 mg Q2D PO 11/05/18 09:00 Home Med (Med Rec Complete!) ASDIRECTED XX 11/03/18 21:30 11/03/18 21:21 DC Hydroxyzine HCl (Atarax) 50 mg Q6HP PRN PO anxiety/agitation 11/04/18 16:00 11/06/18 11:30 Ibuprofen (Advil) 600 mg Q12HP PRN PO PAIN 11/04/18 02:45 11/04/18 20:14 DC 11/04/18 14:06 Ibuprofen (Advil) 600 mg Q6HP PRN PO MODERATE PAIN (PS 5-7) 11/04/18 20:15 11/05/18 17:57 Lisinopril (Prinivil) 30 mg DAILY PO 11/05/18 09:00 11/06/18 08:17 Magnesium Hydroxide (Milk Of Magnesia) 30 ml DAILYPRN PRN PO CONSTIPATION 11/03/18 21:15 Nicotine (Nicoderm Cq 7 Mg) 1 patch DAILY TD 11/04/18 09:00 11/06/18 08:18 Omeprazole (PriLOSEC) 20 mg DAILY PO 11/05/18 09:00 11/06/18 08:17 Paroxetine HCl (PAXil) 20 mg QAM PO 11/05/18 09:00 11/06/18 08:17 Trazodone HCl (Desyrel) 50 mg QHSP PRN PO INSOMNIA 11/03/18 21:15 11/03/18 23:06 Zolpidem Tartrate (Ambien) 5 mg QHSP PRN PO insomnia 11/04/18 23:05 11/04/18 23:23 Allergies Coded Allergies: metoprolol (Verified Allergy, Severe, hives, 11/01/18) quetiapine (Verified Allergy, Severe, rash, 11/01/18) sulfamethoxazole (Verified Allergy, Severe, rash, 11/01/18) trimethoprim (Verified Allergy, Severe, rash, 11/01/18) Penicillins (Verified Allergy, Intermediate, hives, 11/01/18) amoxicillin (Verified Allergy, Intermediate, hives, 11/01/18) codeine (Verified Allergy, Intermediate, rash, 11/01/18) IRASEMA YANEZ DO Nov 06, 2018 12:59
[2018-11-06 15:38] VITALS: BP 106/57
[2018-11-06] MEDS: EXCEDRIN MIGRAINE TABLET PO PRN (16:29)
[2018-11-06] MEDS: DIVALPROEX 250 MG TAB PO SCH (19:53)
[2018-11-07 06:33] VITALS: BP 135/71
[2018-11-07] MEDS: IBUPROFEN 600 MG TAB PO PRN ×2 (07:21→22:44)
[2018-11-07] MEDS: DOCUSATE SODIUM 100 MG CAP PO SCH (08:07)
[2018-11-07] MEDS: OMEPRAZOLE 20 MG CAP PO SCH (08:11)
[2018-11-07] MEDS: NICOTINE 7 MG/24 HR TRANSDERMAL TD SCH (08:11)
[2018-11-07] MEDS: PARoxetine 20 MG TAB PO SCH (08:11)
[2018-11-07] MEDS: LISINOPRIL 10 MG TAB PO SCH (08:11)
[2018-11-07] MEDS: AZITHROMYCIN 250 MG TAB PO SCH (08:11)
--- NOTE | 2018-11-07 11:01 | MHIPNPDOC ---
[facility] Progress Note Progress Note DATE OF SERVICE: 11/07/18 HISTORY:Patient is a 28 -year-old , female, who presented to the ED with fleeting SI w/o plan. The patient stated "I'm having suicidal thoughts again." She reports having relational problems with her fiance. She admits only being together for the past two months but they are currently engaged. She reports her s.o. is diagnosed with ASD and they argue almost daily with no specific triggers. She reports the pat week she has been struggling with SI. She is nt currently prescribed any psych medications but has a scheduled appt with [facility] for 11/14/18 but feels like her suicidal thoughts are getting worse. She is requesting admission so she can be placed back on her psych medication. Her most recent admission was in 2016 for SI in [place]. She was admitted here at [facility] in 2014 and was at that time discharged on 20mg Prozac. VITALS: see below CURRENT MEDICATIONS: see below NEW TEST RESULTS: see below Mental Status Examination General: Well dressed with good hygiene Speech: Spontaneous and fluid Thought processes: Linear and logical MSK: Smooth and coordinated gait, no signs of tremors or involuntary orofacial movements Thought content: linear, logical, more hopeful Abstract reasoning, and computation: Intact Description of associations: Intact Description of abnormal or psychotic thoughts: Denies any suicidal or homicidal ideation. Denies any auditory or visual hallucinations. Does not appear to be responding to internal stimuli. Does not appear to be endorsing any bizarre or paranoid ideation. Judgment: fair Insight: fair Orientation: Alert and orientated 3 Cognition: Grossly normal Recent and remote memory: Intact Attention span and concentration: Intact Fund of knowledge: Adequate Mood: "okay" Affect: mildly depressed with less constricted range Diagnoses Unspecified depressive disorder. Rule out bipolar 2 versus borderline personality disorder. Assessment and Plan Patient reports she is doing okay, but feels like she has been getting sleepy during the day on Paxil and wakes up not feeling refreshed. She has been taking these before dinner. She has never taken prozac before and is open to trying it if it would not make her feel as sleepy. States she is communicating better with her partner and that her family is very supportive of her. Groups did not go well today only because of the loud construction. She denies any SI or thoughts of self harm. She otherwise states the medications have been helping her. States her family has been supportive and helpful while she has been here. Plan: 1. D/C paxil 2. Start Prozac 20 mg PO QD 3. Continue Depakote. Time Spent 30 minutes Vital Signs Vital Signs Date Time Temp Pulse Resp B/P (MAP) Pulse Ox O2 Delivery O2 Flow Rate FiO2 11/07/18 08:11 139/85 11/07/18 06:33 98.2 80 12 11/06/18 10:32 Room Air 11/04/18 03:11 98 Current Medications Current Medications Medications (Trade) Dose Ordered Sig/Ivan Route PRN Reason Start Time Stop Time Status Last Admin Dose Admin Acetaminophen (Tylenol Tab) 650 mg Q6HP PRN PO PAIN / FEVER 11/04/18 13:30 11/05/18 20:54 Acetaminophen/ Aspirin/Caffeine (Excedrin Migraine) 1 ea Q6HP PRN PO HEADACHE 11/03/18 21:15 11/06/18 16:29 Al Hydrox/Mg Hydrox/Simethicone (Mylanta) 30 ml Q4HP PRN PO HEARTBURN/INDIGESTION 11/03/18 21:15 Albuterol Sulfate (Proventil Neb) 2.5 mg Q6HP PRN NEB SOB/WHEEZING 11/04/18 13:30 Albuterol Sulfate (Proventil, Ventolin Hfa) 2 puff Q6HP PRN INH SHORTNESS OF BREATH 11/04/18 13:30 11/04/18 19:43 Azithromycin (Zithromax Tab) 250 mg DAILY PO 11/04/18 09:00 11/07/18 09:00 DC 11/07/18 08:11 Benzonatate (Tessalon Perles) 200 mg Q6HP PRN PO COUGH 11/04/18 02:45 11/06/18 19:53 Divalproex Sodium (Depakote) 250 mg QHS PO 11/04/18 21:00 11/06/18 19:53 Docusate Sodium (Colace) 100 mg Q2D PO 11/05/18 09:00 Home Med (Med Rec Complete!) ASDIRECTED XX 11/03/18 21:30 11/03/18 21:21 DC Hydroxyzine HCl (Atarax) 50 mg Q6HP PRN PO anxiety/agitation 11/04/18 16:00 11/06/18 20:34 Ibuprofen (Advil) 600 mg Q12HP PRN PO PAIN 11/04/18 02:45 11/04/18 20:14 DC 11/04/18 14:06 Ibuprofen (Advil) 600 mg Q6HP PRN PO MODERATE PAIN (PS 5-7) 11/04/18 20:15 11/07/18 07:21 Lisinopril (Prinivil) 30 mg DAILY PO 11/05/18 09:00 11/07/18 08:11 Magnesium Hydroxide (Milk Of Magnesia) 30 ml DAILYPRN PRN PO CONSTIPATION 11/03/18 21:15 Nicotine (Nicoderm Cq 7 Mg) 1 patch DAILY TD 11/04/18 09:00 11/07/18 08:11 Omeprazole (PriLOSEC) 20 mg DAILY PO 11/05/18 09:00 11/07/18 08:11 Paroxetine HCl (PAXil) 20 mg QAM PO 11/05/18 09:00 11/07/18 08:11 Trazodone HCl (Desyrel) 50 mg QHSP PRN PO INSOMNIA 11/03/18 21:15 11/03/18 23:06 Zolpidem Tartrate (Ambien) 5 mg QHSP PRN PO insomnia 11/04/18 23:05 11/04/18 23:23 Allergies Coded Allergies: metoprolol (Verified Allergy, Severe, hives, 11/01/18) quetiapine (Verified Allergy, Severe, rash, 11/01/18) sulfamethoxazole (Verified Allergy, Severe, rash, 11/01/18) trimethoprim (Verified Allergy, Severe, rash, 11/01/18) Penicillins (Verified Allergy, Intermediate, hives, 11/01/18) amoxicillin (Verified Allergy, Intermediate, hives, 11/01/18) codeine (Verified Allergy, Intermediate, rash, 11/01/18) DONITA MANZANARES DO Nov 07, 2018 11:01
[2018-11-07] MEDS ORDERED: FLUoxetine 20 MG CAP PO ONE (12:00)
[2018-11-07] MEDS: ALBUTEROL 90 MCG/ACT 8GM HFA INHALER INH PRN (17:17)
[2018-11-07 18:01] VITALS: BP 131/60
[2018-11-07] MEDS: hydrOXYzine 50 MG TAB PO PRN (20:12)
[2018-11-07] MEDS: DIVALPROEX 250 MG TAB PO SCH (20:26)
[2018-11-07] MEDS: BENZONATATE 100 MG CAP PO PRN (21:04)
[2018-11-08 06:36] VITALS: BP 90/51
[2018-11-08] MEDS: IBUPROFEN 600 MG TAB PO PRN ×2 (06:45→19:18)
[2018-11-08] MEDS: NICOTINE 7 MG/24 HR TRANSDERMAL TD SCH (08:10)
[2018-11-08] MEDS: OMEPRAZOLE 20 MG CAP PO SCH (08:10)
[2018-11-08] MEDS: LISINOPRIL 10 MG TAB PO SCH (08:12)
[2018-11-08] MEDS: FLUoxetine 20 MG CAP PO SCH (08:12)
[2018-11-08] MEDS: hydrOXYzine 50 MG TAB PO PRN ×2 (08:12→20:54)
--- NOTE | 2018-11-08 09:50 | MHIPNPDOC ---
[facility] Progress Note Progress Note DATE OF SERVICE: 11/08/18 HISTORY: Patient is a 28 -year-old , female, who presented to the ED with fleeting SI w/o plan. The patient stated "I'm having suicidal thoughts agai n." She reports having relational problems with her fiance. She admits only being together for the past two months but they are currently engaged. She reports her s.o. is diagnosed with ASD and they argue almost daily with no specific triggers. She reports the pat week she has been struggling with SI. She is nt currently prescribed any psych medications but has a scheduled appt with [facility] for 11/14/18 but feels like her suicidal thoughts are getting worse. She is requesting admission so she can be placed back on her psych medication. Her most recent admission was in 2016 for SI in [place]. She was admitted here at [facility] in 2014 and was at that time discharged on 20mg Prozac. VITALS: see below CURRENT MEDICATIONS: see below NEW TEST RESULTS: see below Mental Status Examination General: Well dressed with good hygiene Speech: Spontaneous and fluid Thought processes: Linear and logical MSK: Smooth and coordinated gait, no signs of tremors or involuntary orofacial movements Thought content: linear, logical, more hopeful Abstract reasoning, and computation: Intact Description of associations: Intact Description of abnormal or psychotic thoughts: Denies any suicidal or homicidal ideation. Denies any auditory or visual hallucinations. Does not appear to be responding to internal stimuli. Does not appear to be endorsing any bizarre or paranoid ideation. Judgment: fair Insight: fair Orientation: Alert and orientated 3 Cognition: Grossly normal Recent and remote memory: Intact Attention span and concentration: Intact Fund of knowledge: Adequate Mood: "alright" Affect: mildly depressed with less constricted range, anxious Diagnoses Unspecified depressive disorder. Rule out bipolar 2 versus borderline personality disorder. Assessment and Plan Patient reports she is doing "alright" today after starting prozac yesterday. States did have some anxiety yesterday after taking the prozac but states it.s better today. States she feels she is tolerating prozac much better than yesterday and is finding it more beneficial and denies decrease in mood and fatigue toward the afternoon now. States she is communicating better with her partner and that her family is very supportive of her. She is attending groups and finding them beneficial. She denies any SI or thoughts of self harm. She otherwise states depakote and prozac are beneficial and she's tolerating them well. have been helping her. She denies SI/HI, hallucinations, delusions, and feels safe here. Plan: Prozac 20 mg PO daily Depakote 250mg qhs Time Spent 30 minutes Vital Signs Vital Signs Date Time Temp Pulse Resp B/P (MAP) Pulse Ox O2 Delivery O2 Flow Rate FiO2 11/08/18 08:12 117/71 11/08/18 06:36 97.3 67 12 11/06/18 10:32 Room Air 11/04/18 03:11 98 Current Medications Current Medications Medications (Trade) Dose Ordered Sig/Ivan Route PRN Reason Start Time Stop Time Status Last Admin Dose Admin Acetaminophen (Tylenol Tab) 650 mg Q6HP PRN PO PAIN / FEVER 11/04/18 13:30 11/05/18 20:54 Acetaminophen/ Aspirin/Caffeine (Excedrin Migraine) 1 ea Q6HP PRN PO HEADACHE 11/03/18 21:15 11/06/18 16:29 Al Hydrox/Mg Hydrox/Simethicone (Mylanta) 30 ml Q4HP PRN PO HEARTBURN/INDIGESTION 11/03/18 21:15 Albuterol Sulfate (Proventil Neb) 2.5 mg Q6HP PRN NEB SOB/WHEEZING 11/04/18 13:30 Albuterol Sulfate (Proventil, Ventolin Hfa) 2 puff Q6HP PRN INH SHORTNESS OF BREATH 11/04/18 13:30 11/07/18 17:17 Azithromycin (Zithromax Tab) 250 mg DAILY PO 11/04/18 09:00 11/07/18 09:00 DC 11/07/18 08:11 Benzonatate (Tessalon Perles) 200 mg Q6HP PRN PO COUGH 11/04/18 02:45 11/07/18 21:04 Divalproex Sodium (Depakote) 250 mg QHS PO 11/04/18 21:00 11/07/18 20:26 Docusate Sodium (Colace) 100 mg Q2D PO 11/05/18 09:00 Fluoxetine HCl (PROzac) 20 mg DAILY PO 11/08/18 09:00 11/08/18 08:12 Home Med (Med Rec Complete!) ASDIRECTED XX 11/03/18 21:30 11/03/18 21:21 DC Hydroxyzine HCl (Atarax) 50 mg Q6HP PRN PO anxiety/agitation 11/04/18 16:00 11/08/18 08:12 Ibuprofen (Advil) 600 mg Q12HP PRN PO PAIN 11/04/18 02:45 11/04/18 20:14 DC 11/04/18 14:06 Ibuprofen (Advil) 600 mg Q6HP PRN PO MODERATE PAIN (PS 5-7) 11/04/18 20:15 11/08/18 06:45 Lisinopril (Prinivil) 30 mg DAILY PO 11/05/18 09:00 11/08/18 08:12 Magnesium Hydroxide (Milk Of Magnesia) 30 ml DAILYPRN PRN PO CONSTIPATION 11/03/18 21:15 Nicotine (Nicoderm Cq 7 Mg) 1 patch DAILY TD 11/04/18 09:00 11/08/18 08:10 Omeprazole (PriLOSEC) 20 mg DAILY PO 11/05/18 09:00 11/08/18 08:10 Paroxetine HCl (PAXil) 20 mg QAM PO 11/05/18 09:00 11/07/18 11:02 DC 11/07/18 08:11 Trazodone HCl (Desyrel) 50 mg QHSP PRN PO INSOMNIA 11/03/18 21:15 11/03/18 23:06 Zolpidem Tartrate (Ambien) 5 mg QHSP PRN PO insomnia 11/04/18 23:05 11/07/18 11:03 DC 11/04/18 23:23 Allergies Coded Allergies: metoprolol (Verified Allergy, Severe, hives, 11/01/18) quetiapine (Verified Allergy, Severe, rash, 11/01/18) sulfamethoxazole (Verified Allergy, Severe, rash, 11/01/18) trimethoprim (Verified Allergy, Severe, rash, 11/01/18) Penicillins (Verified Allergy, Intermediate, hives, 11/01/18) amoxicillin (Verified Allergy, Intermediate, hives, 11/01/18) codeine (Verified Allergy, Intermediate, rash, 11/01/18) DONITA MANZANARES DO Nov 08, 2018 9:00 am
[2018-11-08] MEDS: EXCEDRIN MIGRAINE TABLET PO PRN (12:45)
[2018-11-08 16:40] VITALS: BP 121/60
[2018-11-08] MEDS: DIVALPROEX 250 MG TAB PO SCH (20:20)
[2018-11-09 06:21] VITALS: BP 113/80
[2018-11-09] MEDS: IBUPROFEN 600 MG TAB PO PRN (06:51)
[2018-11-09] MEDS: DOCUSATE SODIUM 100 MG CAP PO SCH (08:16)
[2018-11-09] MEDS: NICOTINE 7 MG/24 HR TRANSDERMAL TD SCH (08:16)
[2018-11-09 08:21] VITALS: BP 110/60
[2018-11-09] MEDS: FLUoxetine 20 MG CAP PO SCH (08:21)
[2018-11-09] MEDS: LISINOPRIL 10 MG TAB PO SCH (08:21)
[2018-11-09] MEDS: OMEPRAZOLE 20 MG CAP PO SCH (08:21)
[2018-11-09] MEDS ORDERED: HYDR50TA70 PO (08:40)
[2018-11-09] MEDS ORDERED: TRAZ-252 PO (08:40)
[2018-11-09] MEDS ORDERED: FLUO20CA19 PO (08:40)
[2018-11-09] MEDS ORDERED: DEPA250T32 PO (08:40)
--- NOTE | 2018-11-09 08:41 | MHDSPDOC ---
[facility] Discharge Summary Discharge Summary DATE OF ADMISSION: Nov 03, 2018 at 9:10 pm DATE OF DISCHARGE: Nov 09, 2018 DISCHARGE DIAGNOSES: Unspecified depressive disorder. Rule out bipolar 2 versus borderline personality disorder. REASON FOR ADMISSION: Patient is a 28 -year-old , female, who presented to the ED with fleeting SI w/o plan. The patient stated "I'm having suicidal thoughts again." She reports having relational problems with her fiance. She admits only being together for the past two months but they are currently engaged. She reports her s.o. is diagnosed with ASD and they argue almost daily with no specific triggers. She reports the pat week she has been struggling with SI. She is nt currently prescribed any psych medications but has a scheduled appt with [facility] for 11/14/18 but feels like her suicidal thoughts are getting wor se. She is requesting admission so she can be placed back on her psych medication. Her most recent admission was in 2016 for SI in [place]. She was admitted here [facility] 2014 and was at that time discharged on 20mg Prozac. CONSULTANTS INVOLVED: none TREATMENT AND PROGRESS ON THE UNIT : Pt was admitted to [facility], seen for psychiatric assessment and started on paxil 20mg daily for mood and anxiety that she did not find beneficial thru out the day so it was discontinued and she was started on prozac 20mg daily that she found beneficial thru the day for mood. She was also started on depakote 250mg qhs for mood stabilization. She was provided vistaril 50mg q6hr prn anxiety and trazodone 50mg qhs prn insomnia. Pt found her medications beneficial and tolerated them well. She attended groups daily during her stay. Her symptoms improved with treatment. On day of discharge she denied depression, anxiety, insomnia, SI/HI, hallucinations, delusions. She was discharged home after family meeting with her parents with follow-up at [facility]. She felt safe for discharge. DISCHARGE ASSESSMENT:Patient reports mood is "good" and that she's looking forward to going home today. She is tolerating prozac well and is finding it more beneficial thru out the day for her mood and anxiety. States she is communicating better with her partner and that her family is very supportive of her. She is attending groups and finding them beneficial. She denies any SI or thoughts of self harm. She states depakote and prozac are beneficial and she's tolerating them well in combination. States vistaril is beneficial for anxiety. She is sleeping and eating well. She denies depression, anxiety, insomnia, SI/HI, hallucinations, delusions, and feels safe to be discharged home today. MENTAL STATUS EXAMINATION ON DISCHARGE: General: Well dressed with good hygiene Speech: Spontaneous and fluid Thought processes: Linear and logical MSK: Smooth and coordinated gait, no signs of tremors or involuntary orofacial movements Thought content: linear, logical, more hopeful Abstract reasoning, and computation: Intact Description of associations: Intact Description of abnormal or psychotic thoughts: Denies any suicidal or homicidal ideation. Denies any auditory or visual hallucinations. Does not appear to be responding to internal stimuli. Does not appear to be endorsing any bizarre or paranoid ideation. Judgment: good Insight: good Orientation: Alert and orientated 3 Cognition: Grossly normal Recent and remote memory: Intact Attention span and concentration: Intact Fund of knowledge: Adequate Mood: "good" Affect: euthymic, full, congruent MEDICATIONS ON DISCHARGE: Prozac 20 mg PO daily Depakote 250mg qhs vistaril 50mg q6hr prn anxiety trazodone 50mg qhs prn insomnia PLAN/FOLLOWUP ARRANGEMENTS: D/c home with follow-up at [facility]. The amount of time spent in the coordination of care for this patient was approximately 30 minutes. Vital Signs/I&Os Vital Signs Date Time Temp Pulse Resp B/P (MAP) Pulse Ox O2 Delivery O2 Flow Rate FiO2 11/09/18 08:21 110/60 11/09/18 06:21 97.3 64 16 11/06/18 10:32 Room Air 11/04/18 03:11 98 Medications Scheduled Azithromycin (Azithromycin) 250 Mg Tablet, 250 MG PO ASDIRECTED, (Reported) 500MG ON DAY 1, THEN 250MG DAILY THE FINAL 4 DAYS; LAST DOSE WAS DAY 2. Cholecalciferol (Vitamin D3) (Vitamin D3) 50,000 Unit Capsule, 50,000 UNIT PO Q2WK, (Reported) EVERY OTHER WEDNESDAY Cyanocobalamin (Vitamin B-12) (Vitamin B-12) 1,000 Mcg Tablet, 1,000 MCG PO DAILY, (Reported) Docusate Sodium (Stool Softener) 100 Mg Capsule, 100 MG PO Q2D, (Reported) Lisinopril (Lisinopril) 30 Mg Tab, 30 MG PO DAILY, (Reported) Multivitamins (Child Chew Vitamin) 1 Each Tab.chew, 1 TAB PO DAILY, (Reported) Omeprazole (Omeprazole) 20 Mg Cap, 20 MG PO DAILY, (Reported) Scheduled PRN Albuterol Sulfate (Ventolin Hfa) 18 Gm Hfa.aer.ad, 2 PUFF INH Q4H PRN for SHORTNESS OF BREATH, (Reported) Aspirin/Acetaminophen/Caffeine (Excedrin Migraine Caplet) 1 Each Tablet, 2 TAB PO BID PRN for MIGRAINE, (Reported) Ibuprofen (Ibuprofen) 800 Mg Tablet, 800 MG PO TID PRN for PAIN, (Reported) Allergies Coded Allergies: metoprolol (Verified Allergy, Severe, hives, 11/01/18) quetiapine (Verified Allergy, Severe, rash, 11/01/18) sulfamethoxazole (Verified Allergy, Severe, rash, 11/01/18) trimethoprim (Verified Allergy, Severe, rash, 11/01/18) Penicillins (Verified Allergy, Intermediate, hives, 11/01/18) amoxicillin (Verified Allergy, Intermediate, hives, 11/01/18) codeine (Verified Allergy, Intermediate, rash, 11/01/18) DONITA MANZANARES DO Nov 09, 2018 8:41 am
[2018-11-09] MEDS: hydrOXYzine 50 MG TAB PO PRN (10:12)
== END 2018-11-09 11:17 | disposition home or self-care (01) | DRG 881 ==
LOC: M ED 18:00 → M ED INP 21:10 → M PSY 22:03
PROVIDERS: ADMIT Psychiatry & Neurology Psychiatry; ATTEND Psychiatry & Neurology Psychiatry
DX: F32.9 Major depressive disorder, single episode, unspecified (principal); R45.851 Suicidal ideations; F31.81 Bipolar II disorder; F60.3 Borderline personality disorder; I10 Essential (primary) hypertension; J45.909 Unspecified asthma, uncomplicated; F90.9 Attention-deficit hyperactivity disorder, unspecified type; G43.909 Migraine, unspecified, not intractable, without status migrainosus; K21.9 Gastro-esophageal reflux disease without esophagitis; G47.30 Sleep apnea, unspecified; Z81.8 Family history of other mental and behavioral disorders; Z63.0 Problems in relationship with spouse or partner; Z79.899 Other long term (current) drug therapy; Z88.0 Allergy status to penicillin; Z88.2 Allergy status to sulfonamides; Z88.1 Allergy status to other antibiotic agents; Z88.8 Allergy status to other drugs, medicaments and biological substances

== ENCOUNTER 2018-12-10 16:08 | Emergency (ER) | payer MEDICARE, MEDICAID ==
[~2018-12-10] VITALS: Ht 152.4 cm; Wt 97.1 kg
[~2018-12-10 16:08] MED LIST changes: +AZIT-12; +AZIT-12 PO; +CYAN100050 PO; +DEPA250T32 PO; +EXCETAB33 PO; +FLUO20CA19 PO; +HYDR50TA70 PO; +IBUP1TAB7 PO; +NYST1POW9 TOP; +VITA1CAP25 PO; +VITACHTA PO
[2018-12-10] MEDS ORDERED: KETOROLAC 60 MG/2 ML VIAL (J1885) IM ONE (19:15)
[2018-12-10] MEDS ORDERED: METHOCARBAMOL 750 MG TAB PO ONE (19:15)
[2018-12-10] MEDS ORDERED: CYCL5TAB PO (20:26)
[2018-12-10] MEDS ORDERED: KETO10TAB PO (20:26)
[2018-12-10 20:33] VITALS: BP 126/71
== END 2018-12-10 20:35 | disposition home or self-care (01) ==
LOC: M ED 16:08
DX: S39.012A Strain of muscle, fascia and tendon of lower back, initial encounter (principal); X58.XXXA Exposure to other specified factors, initial encounter; Y92.9 Unspecified place or not applicable; Y93.9 Activity, unspecified; Y99.9 Unspecified external cause status; I10 Essential (primary) hypertension; K21.9 Gastro-esophageal reflux disease without esophagitis; G43.909 Migraine, unspecified, not intractable, without status migrainosus; J45.909 Unspecified asthma, uncomplicated; G47.30 Sleep apnea, unspecified; F31.89 Other bipolar disorder; F17.200 Nicotine dependence, unspecified, uncomplicated; Z79.82 Long term (current) use of aspirin; Z79.899 Other long term (current) drug therapy; Z88.0 Allergy status to penicillin; Z88.5 Allergy status to narcotic agent; Z88.8 Allergy status to other drugs, medicaments and biological substances
CPT/HCPCS: 81001; 96372; 99283; J1885

== ENCOUNTER 2018-12-14 09:34 | Day surgery (SDC) | payer MEDICARE, MEDICAID ==
[~2018-12-14] VITALS: Ht 152.4 cm; Wt 98.4 kg
[~2018-12-14 09:34] MED LIST changes: +CYCL5TAB PO; +KETO10TAB PO; +NS 1,000 ML IV ONE
[2018-12-14] MEDS ORDERED: fentaNYL 100 MCG/2 ML INJECTION (J3010) As Ordered ONE (10:59)
[2018-12-14] MEDS ORDERED: PROPOFOL 200 MG/20 ML VIAL As Ordered ONE (11:04)
[2018-12-14] MEDS ORDERED: LIDOCAINE 2% INJ 100 MG/5 ML SDV (FOR ANES.) As Ordered ONE (11:04)
--- NOTE | 2018-12-14 11:52 | ROOR ---
Patient Name: Lena Galo Procedure Date: 12/14/2018 11:28 AM Date of : 1990 Age: 28 Room: [facility] Gender: Female Note Status: Finalized Procedure: Upper Endoscopy + Biopsies Indications: Heartburn, Exclusion of Acuña's esophagus Providers: Keshav Petty MD Referring MD: CYRUS FULLER MD Requesting Provider: Medicines: Monitored Anesthesia Care Complications: No immediate complications. Procedure: Pre-Anesthesia Assessment: - The heart rate, respiratory rate, oxygen saturations, blood pressure, adequacy of pulmonary ventilation, and response to care were monitored throughout the procedure. The Endoscope was introduced through the mouth, and advanced to the second part of duodenum. The upper GI endoscopy was accomplished without difficulty. The patient tolerated the procedure well. Findings: The Z-line was irregular and was found 40 cm from the incisors. Multiple biopsies were obtained with cold forceps for evaluation to rule out Acuña's Esophagus randomly at the gastroesophageal junction. A small hiatal hernia was present. Localized mildly erythematous mucosa was found in the gastric antrum. Biopsies were taken with a cold forceps for Helicobacter pylori testing. The exam of the duodenum was otherwise normal. Impression: - Z-line irregular, 40 cm from the incisors. - Small hiatal hernia. - Erythematous mucosa in the antrum. Biopsied. - Multiple biopsies were obtained at the gastroesophageal junction. - The examination was otherwise normal. Recommendation: - Patient has a contact number available for emergencies. The signs and symptoms of potential delayed complications were discussed with the patient. Return to normal activities tomorrow. Written discharge instructions were provided to the patient. - Discharge patient to home. - Follow an antireflux regimen. - Continue present medications. - Await pathology results. - Telephone GI clinic for pathology results in 1 week. - Return to referring physician. - The findings and recommendations were discussed with the patient's family. Keshav Petty MD Keshav Petty MD 12/14/2018 11:51:52 AM Electronically signed by Keshav Petty MD Number of Addenda: 0 Note Initiated On: 12/14/2018 11:28 AM Estimated Blood Loss: Estimated blood loss: none.
--- NOTE | 2018-12-14 12:01 | ROOR ---
Patient Name: Lena Galo Procedure Date: 12/14/2018 11:29 AM Date of : 1990 Age: 28 Room: [facility] Gender: Female Note Status: Finalized Procedure: Colonoscopy to Rectosigmoid colon(POOR PREP) Indications: Chronic idiopathic constipation Providers: Keshav Petty MD Referring MD: CYRUS FULLER MD Requesting Provider: Medicines: Monitored Anesthesia Care Complications: No immediate complications. Procedure: Pre-Anesthesia Assessment: - The heart rate, respiratory rate, oxygen saturations, blood pressure, adequacy of pulmonary ventilation, and response to care were monitored throughout the procedure. The Colonoscope was introduced through the anus with the intention of advancing to the cecum. The scope was advanced to the sigmoid colon before the procedure was aborted. Medications were given. The colonoscopy was performed without difficulty. The patient tolerated the procedure well. The quality of the bowel preparation was inadequate. Findings: The perianal and digital rectal examinations were normal. A large amount of stool was found in the recto-sigmoid colon. The exam was otherwise without abnormality. Impression: - Preparation of the colon was inadequate. - Stool in the recto-sigmoid colon. - The examination was otherwise normal. - No specimens collected. - The exam was suboptimal due to patient preparation. Recommendation: - Patient has a contact number available for emergencies. The signs and symptoms of potential delayed complications were discussed with the patient. Return to normal activities tomorrow. Written discharge instructions were provided to the patient. - High fiber diet. - Discharge patient to home. - Continue present medications. - Repeat colonoscopy at appointment to be scheduled because the bowel preparation was poor. - Return to referring physician. - The findings and recommendations were discussed with the patient's family. Keshav Petty MD Keshav Petty MD 12/14/2018 12:01:02 PM Electronically signed by Keshav Petty MD Number of Addenda: 0 Note Initiated On: 12/14/2018 11:29 AM Estimated Blood Loss: Estimated blood loss: none.
[2018-12-14 12:40] VITALS: BP 144/98
== END 2018-12-14 12:55 | disposition home or self-care (01) ==
LOC: M OPP 09:34
PROVIDERS: ATTEND Internal Medicine Gastroenterology
DX: K59.04 Chronic idiopathic constipation (principal); R12 Heartburn; K22.8 Other specified diseases of esophagus; K44.9 Diaphragmatic hernia without obstruction or gangrene; K31.89 Other diseases of stomach and duodenum; I10 Essential (primary) hypertension; I34.1 Nonrheumatic mitral (valve) prolapse; R87.810 Cervical high risk human papillomavirus (HPV) DNA test positive; F41.9 Anxiety disorder, unspecified; F90.9 Attention-deficit hyperactivity disorder, unspecified type; F31.9 Bipolar disorder, unspecified; G43.909 Migraine, unspecified, not intractable, without status migrainosus; J45.909 Unspecified asthma, uncomplicated; G47.30 Sleep apnea, unspecified; R06.83 Snoring; F17.210 Nicotine dependence, cigarettes, uncomplicated; Z88.0 Allergy status to penicillin; Z88.5 Allergy status to narcotic agent; Z88.8 Allergy status to other drugs, medicaments and biological substances; Z88.2 Allergy status to sulfonamides; Z79.899 Other long term (current) drug therapy
CPT/HCPCS: 43239; 45378; 88305; J3010

== ENCOUNTER → 2019-03-03 | Outpatient (CLI) | payer MEDICARE, MEDICAID ==
[~2019-03-03] MED LIST changes: -NS 1,000 ML IV ONE
[2019-03-03 17:28] LABS: BASO % 0.5 % (0.0-1.0); EOS # 0.4 10^3/uL (0.0-0.5); EOS % 4.9 % (0.0-3.0); HEMATOCRIT 45.5 % (36.0-47.0); HEMOGLOBIN 14.9 g/dl (12.0-15.5); LYMPH # 2.5 10^3/uL (1.5-5.0); LYMPH % 31.3 % (24.0-44.0); MEAN CORPUSCULAR HEMOGLOBIN 30.3 pg (27.0-33.0); MEAN CORPUSCULAR HGB CONC 32.7 g/dl (32.0-36.5); MEAN CORPUSCULAR VOLUME 92.5 fl (80.0-96.0); MONO # 0.6 10^3/uL (0.0-0.8); MONO % 7.4 % (0.0-5.0); NEUTROPHILS # 4.4 10^3/uL (1.5-8.5); NEUTROPHILS % 55.6 % (36.0-66.0); PLATELET COUNT, AUTOMATED 280 10^3/uL (150-450); RED BLOOD COUNT 4.92 10^6/uL (4.00-5.40); WHITE BLOOD COUNT 7.9 10^3/uL (4.0-10.0)
[2019-03-03 17:54] LABS: ALBUMIN 3.8 GM/DL (3.2-5.2); ALT/SGPT 29 U/L (12-78); BILIRUBIN,TOTAL 0.5 MG/DL (0.2-1.0); BLOOD UREA NITROGEN 13 MG/DL (7-18); CARBON DIOXIDE LEVEL 33 MEQ/L (21-32); CHLORIDE LEVEL 102 MEQ/L (98-107); CREATININE FOR GFR 0.66 MG/DL (0.55-1.30); GLOMERULAR FILTRATION RATE > 60.0 (>60); GLUCOSE, FASTING 84 MG/DL (70-100); POTASSIUM SERUM 4.4 MEQ/L (3.5-5.1); SODIUM LEVEL 138 MEQ/L (136-145); TOTAL PROTEIN 7.7 GM/DL (6.4-8.2)
== END ==
LOC: M LAB 16:10
PROVIDERS: ATTEND Physician Assistant
DX: F33.9 Major depressive disorder, recurrent, unspecified (principal)